=== PATIENT | female | born 1995 | race Caucasian/White ===

== ENCOUNTER 2016-07-24 21:46 | Emergency (ER) | payer BC ==
[2016-07-25 00:22] LABS: SPECIFIC GRAVITY 1.015 (1.001-1.030); URINE BILIRUBIN NEGATIVE (NEGATIVE); URINE BLOOD NEGATIVE (NEGATIVE); URINE GLUCOSE (UA) NEGATIVE (NEGATIVE); URINE LEUKOCYTE ESTERASE NEGATIVE (NEGATIVE); URINE NITRITE NEGATIVE (NEGATIVE); URINE PROTEIN NEGATIVE (NEGATIVE); URINE UROBILINOGEN NORMAL (0-1 mg/dl)
[2016-07-25 00:23] LABS: URINE APPEARANCE CLEAR; URINE COLOR YELLOW
[2016-07-25 00:24] LABS: HCG,QUALITATIVE URINE NEGATIVE
== END 2016-07-25 00:25 | disposition home or self-care (01) ==
LOC: ED 21:46
DX: R55 Syncope and collapse (principal); R42 Dizziness and giddiness